=== PATIENT | female | born 1975 | race Caucasian/White ===

== ENCOUNTER 2019-11-24 18:27 | Emergency (ER) | payer BC ==
[~2019-11-24] VITALS: Ht 167.6 cm; Wt 85.8 kg
[2019-11-24] MEDS ORDERED: ALPRAZOLAM0.5 MG PO (18:37)
[2019-11-24] MEDS ORDERED: NATURAL IRON65 MG PO (18:37)
[2019-11-24] MEDS ORDERED: FISH OIL1 IU PO (18:37)
[2019-11-24] MEDS ORDERED: ASPIRIN 81M81 MG/TA2 PO (18:38)
[2019-11-24] MEDS ORDERED: MULTIVITAMIN1 SGL PO (18:38)
[2019-11-24] MEDS ORDERED: BENADRYL (18:39)
[2019-11-24] MEDS ORDERED: ESCITALOPRAM5 MG PO (19:22)
[2019-11-24 19:28] LABS: BASO # 0.1 (0.02-0.10); EOS # 0.1 (0.04-0.40); EOS % 1.3 % (1.0-5.0); HEMATOCRIT 42.4 % (37.0-47.0); HEMOGLOBIN 14.6 g/dL (12.5-16.0); MEAN CELL VOLUME 89 fl (78-100); MEAN CORPUSCULAR HEMOGLOBIN 31 pg (27-31); MEAN CORPUSCULAR HGB CONC 34 g/dL (33-37); MEAN PLATELET VOLUME 9.3 fl (7.4-10.4); MONO # 0.7 (0.20-0.80); NEU # 5.1 (1.40-6.50); PLATELET COUNT 398 K/mm3 (130-400); RED BLOOD COUNT 4.75 M/mm3 (4.10-5.30); RED CELL DISTRIBUTION WIDTH 13.6 % (11.5-14.5)
[2019-11-24 19:31] LABS: ALBUMIN 4.5 g/dL (3.5-5.0); POTASSIUM 3.9 mmol/L (3.5-5.1)
[2019-11-24 19:32] LABS: CALCIUM 9.7 mg/dL (8.3-10.5)
[2019-11-24 19:34] LABS: TOTAL PROTEIN 6.8 g/dL (6.4-8.3)
[2019-11-24 19:35] LABS: TOTAL BILIRUBIN 0.7 mg/dL (0.2-1.2)
[2019-11-24] MEDS ORDERED: LORAZEPAM0.5 M1 PO (20:27)
[2019-11-24] MEDS ORDERED: METOPROLOL SUCC25 M1 PO (20:27)
[2019-11-24 20:52] VITALS: BP 138/94
== END 2019-11-24 20:53 | disposition home or self-care (01) ==
LOC: ED 18:27
PROVIDERS: Family Medicine
DX: R00.2 Palpitations (principal); I10 Essential (primary) hypertension; R25.1 Tremor, unspecified; F17.210 Nicotine dependence, cigarettes, uncomplicated
CPT/HCPCS: J2060